=== PATIENT | female | born 1980 | race Hispanic/Latino ===

== ENCOUNTER 2018-11-20 15:22 | Outpatient (CLI) | payer BC ==
--- NOTE | 2018-11-20 16:48 | ULT ---
PELVIC ULTRASOUND WITH DOPPLER: (Transabdominal, transvaginal, dumont scale, color flow and spectral doppler) 11/20/18 HISTORY: Left lower quadrant pain. FINDINGS: The uterus measures 8.8 x 5.8 x 4.8 cm without focal mass or endometrial fluid. The endometrium measu res 13 mm in thickness. The right ovary measures 2.5 x 1.5 x 2.2 cm. The left ovary measures 2.7 x 1.5 x 1.5 cm. flow is demo nstrated to both ovaries. No adnexal mass or free fluid in the cul-de-sac is seen. Nabothian cysts ar e noted in the cervix. IMPRESSION: Unremarkable exam. POS: OFF
== END 2018-11-20 15:23 | disposition home or self-care (01) ==
LOC: BICULT 15:22
PROVIDERS: ATTEND Family Medicine
DX: R10.32 Left lower quadrant pain (principal)
CPT/HCPCS: 76856